=== PATIENT | female | born 1940 | race Hispanic/Latino ===

== ENCOUNTER 2019-03-18 10:13 | Day surgery (SDC) | payer MEDICARE ==
[~2019-03-18 10:13] MED LIST: NACL 0.9% 1000 ML 1,000 ML IV SCH
[2019-03-18 12:19] VITALS: BP 131/71
--- NOTE | 2019-03-18 14:22 | Anesthesia Consultation ---
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
[2019-03-18] MEDS ORDERED: DIPRIVAN 10 MG/ML IV ONE ×2 (14:57)
== END 2019-03-18 10:14 | disposition home or self-care (01) ==
LOC: GIO 10:13
PROVIDERS: ATTEND Internal Medicine Gastroenterology
DX: Z12.11 Encounter for screening for malignant neoplasm of colon (principal); E78.00 Pure hypercholesterolemia, unspecified; I10 Essential (primary) hypertension; Z53.8 Procedure and treatment not carried out for other reasons; Z79.899 Other long term (current) drug therapy; Z86.73 Personal history of transient ischemic attack (TIA), and cerebral infarction without residual deficits
CPT/HCPCS: J2704; J7030